=== PATIENT | female | born 1985 | race Caucasian/White ===

== ENCOUNTER 2018-07-21 11:52 | Emergency (ER) | payer SELFPAY ==
[~2018-07-21] VITALS: Ht 157.5 cm; Wt 113.0 kg
[~2018-07-21 11:52] MED LIST: AMOXICILLIN875 MG PO; AZITHROMYCIN250 MG OR; BACTROBAN2 % EX; BENTYL10 MG PO; CIPROFLOXACN500 MG PO; DENIES CURRENT MEDS; DOXYCYCL HYC100 M1 OR; MACROBID100 MG PO; METRONIDAZOL500 MG PO; NAPROSYN500 MG PO; NO HOME MEDS; PERCOCET 5/325M1 TAB OR; PREDNISONE20 MG OR; PROAIR HFA IN; TRIMOX500 MG PO; ULTRAM50 M1 OR; ULTRAM50 M1 PO; ULTRAM50 MG OR; XANAX0.5 MG PO; ZOFRAN ODT4 MG PO; ZYRTEC10 MG PO; [UNRECOGNIZED DRUG - OTHER] OR
[2018-07-21 13:13] VITALS: BP 137/75
[2018-07-21] MEDS ORDERED: MOTRIN400 MG PO (13:23)
[2018-07-21] MEDS ORDERED: TRAMADOL HCL E100 MG PO (13:27)
== END 2018-07-21 13:36 | disposition home or self-care (01) | DRG 563 ==
LOC: ED 11:52
DX: S93.402A Sprain of unspecified ligament of left ankle, initial encounter (principal); S90.02XA Contusion of left ankle, initial encounter; M25.572 Pain in left ankle and joints of left foot; V13.4XXA Pedal cycle driver injured in collision with car, pick-up truck or van in traffic accident, initial encounter; Y92.410 Unspecified street and highway as the place of occurrence of the external cause; Y93.55 Activity, bike riding; M77.32 Calcaneal spur, left foot; M25.472 Effusion, left ankle

== ENCOUNTER 2019-04-12 | Emergency (ER) | payer SELFPAY ==
[~2019-04-12] MED LIST changes: +MOTRIN400 MG PO; +TRAMADOL HCL E100 MG PO
[2019-04-12] MEDS ORDERED: CEPHALEXIN500 M1 PO ×2 (09:02→10:11)
== END 2019-04-12 10:25 | disposition home or self-care (01) | DRG 605 ==
PROC: 0HQJXZZ Repair Left Upper Leg Skin, External Approach (ICD-10-PCS; principal; 2019-04-12)
DX: S71.112A Laceration without foreign body, left thigh, initial encounter (principal); M25.552 Pain in left hip; F17.210 Nicotine dependence, cigarettes, uncomplicated; W01.0XXA Fall on same level from slipping, tripping and stumbling without subsequent striking against object, initial encounter; Y92.009 Unspecified place in unspecified non-institutional (private) residence as the place of occurrence of the external cause

== ENCOUNTER 2019-04-25 | Inpatient (IN) | payer SELFPAY ==
[~2019-04-25] MED LIST changes: +CEPHALEXIN500 M1 PO
[2019-04-25] MEDS ORDERED: CLINDAMYCIN300 M1 PO (20:05)
[2019-04-25] MEDS ORDERED: BACTRIM DS1 TAB PO (20:06)
[2019-04-25] MEDS ORDERED: KETOROLAC10 MG PO (20:06)
[2019-04-25] MEDS ORDERED: ACIDOPHILUS/PECTIN PO (20:07)
--- NOTE | 2019-04-25 20:10 | NUR ---
PATIENT AMBULATORY TO ROOM 9. PATIENT STATES SHE WAS NOT ABLE TO COMPLETED HER ABX THAT WERE GIVEN TO HER FROM INITIAL INJURY. STATES GAVE HER DIARRHEA. ALSO STATES SHE WAS STARTED ON NEW ABX BUT ONLY TOOK MORNING DOSE AND WAS NOT AWARE THAT THEY ARE 4X A DAY. PATIENT ALSO TOOK TORADOL IN TRIAGE WHEN SHE REALIZED SHE COULD HAVE IT AGAIN. PATIENT SUTURES ARE STILL IN PLACE. WAS SUPPOSED TO BE REMOVED IN 7-10 DAYS FROM INJURY. TODAY IS DAY 13. AREA IS RED, FIRM TO TOUCH, WARM AND TENDER. AWAITING MD DISLA.
--- NOTE | 2019-04-25 20:58 | NUR ---
PT APPEARS WITH AN 8 CM LEGNTH LACERATION THAT HAS BEEN REPAIRED BY STITCHES. THE WOUND IS RED IN THE SURROUNDED AREA AND HOT TO THE TOUCH. DRAINAGE IS APPARENT AND SKIN IS HARD. PT STATES A PAIN 10/10 CAUSED BY LACERATION AND HEADACHE. PT STATES THE INJURY HAPPENED 04/12/19. SHE STATES NOT TAKING ANTIBIOTICS FOR 13 DAYS BECAUSE IT "UPSET MY STOMACH". HER PRIMARY PUT HER ON A DIFFERANT COMBO OF MEDS THREE DAYS AGO. PT IS HERE FOR ASSESSMENT.
--- NOTE | 2019-04-25 21:24 | NUR ---
PT STATES HAVING AN EXCUSIATING HEADACHE, MD NOTIFIED FOR HEADACHE RELIEF ORDER
[2019-04-25 21:25] LABS: IMMATURE GRANULOCYTES 0.4 % (0.0-5.0); MEAN CELL VOLUME 92.5 fL CALC (80.0-100.0); MEAN CORPUSCULAR HGB CONC 33.5 g/L CALC (32.0-36.0); NEUT# 9.8 thou/uL (2.00-7.15); RED BLOOD COUNT 4.16 mill/uL (4.20-5.60); RED CELL DISTRI WIDTH 12.6 % (11.5-15.5)
[2019-04-25 21:28] LABS: URINE BILIRUBIN - DIPSTICK NEGATIVE (NEGATIVE); URINE BLOOD DIPSTICK NEGATIVE (NEGATIVE); URINE COLOR YELLOW; URINE GLUCOSE - DIPSTICK NEGATIVE (NEGATIVE); URINE KETONE NEGATIVE (NEGATIVE); URINE LEUK ESTERASE NEGATIVE (NEGATIVE); URINE NITRITE - DIPSTICK NEGATIVE (Negative); URINE PH 5.5 (4.5-8.0); URINE PROTEIN - DIPSTICK NEGATIVE (NEG-TRACE); URINE SPECIFIC GRAVITY 1.025; URINE UROBILINOGEN - DIPSTICK 0.2 E.U./dL (0.2)
[2019-04-25 21:30] LABS: HEMATOCRIT 38.5 % (37.0-47.0); HEMOGLOBIN 12.9 g/dl (12.0-16.0)
--- NOTE | 2019-04-25 21:40 | NUR ---
REASSESSED PT TEMP= 99.9 F CHARLES ERVIN FOR HEADACHE AND WILL HELP TEMP
[2019-04-25 21:45] LABS: ALKALINE PHOSPHATASE 96 u/l (38-126); ANION GAP 13 (6-22 (CALC)); BILIRUBIN, TOTAL 0.3 mg/dL (0.0-1.4); BUN 12 mg/dL (7-17); BUN/CREATININE RATIO 12 (12-20 (CALC)); CARBON DIOXIDE 25 mmol/l (22-30); CHLORIDE 103 mmol/l (95-108); CREATININE 1.1 mg/dL (0.5-1.0); GFR 58 ML/MIN (>=60 (CALC)); GFR FOR AFR.AMER. > 60 ML/MIN (>=60 (CALC)); POTASSIUM 4.6 mmol/l (3.5-5.1); SODIUM 135 mmol/l (137-146); TOTAL PROTEIN 7.2 g/dL (6.3-8.2)
[2019-04-25 21:47] LABS: SGOT/AST 46 u/l (14-36)
--- NOTE | 2019-04-25 21:53 | NUR ---
REPORT AZIZA ESPINO RN
--- NOTE | 2019-04-25 21:58 | NUR ---
ASSUMED CARE. TO RADIOLOGY VIA W/C.
--- NOTE | 2019-04-25 22:25 | NUR ---
PT RETURNED FROM CT/IVF UP AND VANCO RESTARTED.
--- NOTE | 2019-04-25 22:45 | NUR ---
LAB HERE TO DRAW REPEAT LACTIC ACID...SINCE PT WAS IN CT THE FLUIDS WERE NOT YET STARTED SO LACTIC DRAW WILL BE DELAYED AN HOUR.
--- NOTE | 2019-04-25 22:53 | NUR ---
MELISSAAR SENT TO M/S
--- NOTE | 2019-04-25 23:20 | NUR ---
REPORT TO SHANNON NURSE/MED-SURG
--- NOTE | 2019-04-25 23:30 | NUR ---
DR NOTIFIED OF TEMP. WILL PUT IN ORDER FOR VICENTE.
--- NOTE | 2019-04-25 23:33 | NUR ---
TO FLOOR VIA STRETCHER WITH VANCO AND 1ST LITER OF BOLUS INFUSING. 3 ADDITIONAL NS AND ZOSYN TO FLOOR WITH PT.
--- NOTE | 2019-04-25 23:45 | NUR ---
PT ARRIVED TO MED SURG UNIT VIA STRETCHER ACCOMPANIED BY ED NURSE. PT APPEARS TO BE STABLE AT THIS TIME. SELF AMBULATED TO STANDING SCALE AND TO THE BED. NS BOLUS RUNNING AND VANCOMYCIN ANTIBIOTIC THERAPY RUNNING VIA 22 TO [facility]/SITE APPEARS HEALTHY AT THIS TIME. PT ORIENTED TO ROOM, CALL SYSTEM, LIGHTS, TV AND BED. CHILD SUPPORT SPECIALIST IN W/ PT AT THIS TIME.
[2019-04-25 23:50] VITALS: BP 127/70
--- NOTE | 2019-04-26 00:15 | NUR ---
PT ASSESSMENT AND ADMISSION COMPLETED AT THIS TIME. BOLUS CONTINUED AND IV ANTIBIOTIC THERAPY ADMINISTERED AT THIS TIME PER ORDERS PREVIOUSLY ORDERED AND NOT ADMINISTERED IN ED/MEDICATION BROUGHT TO MED SURG UNIT BY ED NURSE TO BE ADMINISTERED ON MS UNIT. NO S/O DISTRESS NOTED. PICTURES OBTAINED OF ESAU EXT WOUNDS. WOUND TO LUE W/SUTURES IN PLACE DRAINING/PT REQUESTED COVERING TO BE PLACED FOR DRAINAGE/SMALL AMOUNT OF DRESSING ADDED W/MESH DRESSING COVER FOR COMFORT. WILL AWAIT DRESSING ORDERS FOR WOUND CARE.
--- NOTE | 2019-04-26 02:45 | NUR ---
PT SLEEPING AT THIS TIME. "BOYFRIEND" IS AT BEDSIDE. NO S/O DISTRESS NOTED. BOLUS' COMPLETE AND IVF RUNNING PER ORDERS TO RAC/SITE APPEARS HEALTHY AT THIS TIME.
[2019-04-26 04:10] VITALS: BP 119/74
[2019-04-26 08:30] VITALS: BP 119/73
--- NOTE | 2019-04-26 08:30 | NUR ---
ASSESSMENT IS COMPLETED: IV SITE IS FREE FROM REDNESS OR EDEMA. HR IS REG,PULSES ARE STRONG X4 , ABD IS SOFT WITH ACTIVE BS. BREATH SOUNDS ARE CLEAR,BILATERALLY. DRESSING ON LEFT INNER THIGH IS CDI. FAMILY HAS BEEN IN THE ROOM.
--- NOTE | 2019-04-26 10:01 | NUR ---
DR LOPEZ SPOKE WITH DR PATEL RE; PT
--- NOTE | 2019-04-26 12:30 | NUR ---
PT IS RELAXING IN BED WITH NO DISTRESS NOTED. IV SITE IS FREE FROM REDNESS OR EDEMA. CONTINUE TO OSBERVE AND MONITOR.
--- NOTE | 2019-04-26 13:04 | NUR ---
DR PATEL IN TO VISIT WITH PT. TOOK THE SUTURES OUT, COVERED WITH DRESSING. WILL WATCH IT AND USE THE ABT. PT TOLERATED WELL.
--- NOTE | 2019-04-26 13:28 | NUR ---
S: MARTITA BRUNO is a 33 F who presents with cellulitis of the left thigh. She has a history of depression. All medications in patient's chart were reviewed. O: VS: BP: 116/71, P: 109, RR:18 ,T: 99.0 W: 114.4 kg, HT: 62 in, Scr= 1.1 mg/dL ,CrCl= 88.7 ml/min A: Blood culture is pending. P: Patient is on vancomycin 1250 mg IV q12h and Zosyn 3.375 g IV q6h. Vancomycin ordered for pharmacy to dose. Start Vancomycin 1250 mg IV q12h @ 0900, 2100. Vancomycin trough is drawn before the 4th dose on 04/27/19 at 2100 Vancomycin goal trough is between 10-15 mcg/ml. Pharmacy will follow and or advise on antibiotics use as needed.
[2019-04-26 14:44] LABS: MAGNESIUM 1.6 mg/dL (1.6-2.3)
[2019-04-26 15:31] VITALS: BP 113/58
--- NOTE | 2019-04-26 16:30 | NUR ---
PT REMAINS RELAXING IN BED WITH NO DISTRESS NOTED. IV SITE IS FREE FROM REDNESS OR EDEMA.
[2019-04-26 19:30] VITALS: BP 116/80
--- NOTE | 2019-04-26 19:46 | NUR ---
REPORT RECEIVED FROM DAY NURSE. ED CALLED BY DAY NURSE TO OBTAIN ASSISTANCE IN GETTING NEW IV SITE. REPORTS THAT PREVIOUS SITE INFILTRATED.
--- NOTE | 2019-04-26 20:15 | NUR ---
ED NURSE IN TO OBTAIN NEW IV SITE ON PT, CAME TO INFORM ME THAT PT IS WANTING TO LEAVE BECAUSE SHE CAN'T SMOKE. I TALKED W/PT REGARDING TREATMENT OPTIONS, OFFERED TO TRY AND OBTAIN ORDER FROM PHYSICIAN FOR NICOTINE PATCH ORDER, SHE STATED "THAT THING DOESN'T WORK." "I'M A GROWN ASS WOMAN AND I DON'T NEED TO BE HERE AND NOT BE ABLE TO SMOKE, I'D RATHER LEAVE, GIVE ME THE PAPER TO SIGN." PHYSICIAN NOTIFIED AT THIS TIME AND PAPER PROVIDED FOR AMA SIGNATURE.
--- NOTE | 2019-04-26 20:32 | NUR ---
PT OFF THE FLOOR, LEFT AMA. C/O NOT BEING ABLE TO SMOKE, C/O DAY NURSING STAFF NOT BEING ATTENTIVE ENOUGH. DRESSING IN PLACE TO LUE CDI UPON PT LEAVING. NO S/O DISTRESS. PT HAS BEEN ADVISED OF RISKS OF LEAVING AMA AND TO FOLLOW-UP W/PRIMARY CARE PHYSICIAN, SHE REPORTED SHE HAS AN APPOINTMENT W/PCP TOMORROW, ENCOURAGED PT TO FOLLOW-THROUGH W/APPOINTMENT AND TREATMENT PROVIDED.
== END 2019-04-26 20:30 | disposition left against medical advice (07) | DRG 603 ==
PROVIDERS: Nurse Practitioner Family; ADMIT Internal Medicine
DX: L03.116 Cellulitis of left lower limb (principal); S71.112A Laceration without foreign body, left thigh, initial encounter; F17.210 Nicotine dependence, cigarettes, uncomplicated; W19.XXXA Unspecified fall, initial encounter
CPT/HCPCS: J3370; Q9967